=== PATIENT | female | born 1985 | race Caucasian/White ===

== ENCOUNTER 2017-01-27 23:55 | Observation (INO) | payer BC ==
[2017-01-28] MEDS ORDERED: NS 0.9% 1000 ML* 1,000 ML IV ONE (02:04)
[2017-01-28] MEDS ORDERED: Morphine INJ* 4 MG/ML 1 ML CARPUJECT IV ONE (02:04)
[2017-01-28] MEDS ORDERED: Ondansetron INJ* 2 MG/ML VIAL IV ONE (02:04)
--- NOTE | 2017-01-28 02:21 | ED ---
Abdominal Pain/Female - HPI Summary HPI Summary: Pt here w/ ab pain. Started this morning around her navel - progressed throughout the day to her RLQ and intensity increased. [place] a surge of pain followed by some relief not too long ago. Has had nausea but no vomiting. Had a bout of diarrhea earlier tonight as well - denies hematochezia, mucous in stool. Feeling feverish and chilled. Was eating and drinking earlier today - no immediate pain but felt pain as food passed through intestines. No h/o ab surgeries. H/o ovarian cyst and ovulation pain - this does not feel the same. LMP 2 weeks ago - regular cycles for her. () - no complications as a result. Currently sexually active w/ partner - no dysparuenia, no post coital bleeding, no vaginal irritation/pain/discharge. Denies dysuria, flank pain, urgency or frequency. 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 - Pain Intensity: 6 Allergies/Adverse Reactions: Allergies Allergy/AdvReac Type Severity Reaction Status Date / Time Shellfish Allergy Allergy Nausea Verified 01/28/17 00:19 PMH/Surg Hx/FS Hx/Imm Hx Previously Healthy: Yes Endocrine/Hematology History: Reports: Hx Thyroid Disease - thryoidectomy - takes armour synthroid daily Denies: Hx Anticoagulant Therapy, Hx Blood Disorders, Autoimmune Disease - Immunization History Immunizations Up to Date: Yes Infectious Disease History: No Infectious Disease History: Denies: Traveled Outside the [place] in Last 30 Days - Family History Known Family History: Positive: None - Social History Occupation: Employed Full-time Lives: With Family Alcohol Use: Occasionally Hx Substance Use: No Substance Use Type: Reports: None Hx Tobacco Use: No Smoking Status (MU): Never Smoked Tobacco Review of Systems Positive: Fever, Chills - see HPI Eyes: Negative ENT: Negative Cardiovascular: Negative Respiratory: Negative Gastrointestinal: Other - see HPI Genitourinary: Negative Musculoskeletal: Negative Skin: Negative Neurological: Negative Psychological: Normal All Other Systems Reviewed And Are Negative: Yes Physical Exam Triage Information Reviewed: Yes Vital Signs On Initial Exam: Initial Vitals Temp Pulse Resp BP Pulse Ox 97.9 F 72 16 123/82 100 01/28/17 00:17 01/28/17 00:17 01/28/17 00:17 01/28/17 00:17 01/28/17 00:17 Vital Signs Reviewed: Yes Appearance: Positive: Well-Nourished, Ill-Appearing - appears pale but also mildy jaundiced Skin: Positive: Warm, Dry Head/Face: Positive: Normal Head/Face Inspection Eyes: Positive: Normal, EOMI, ROXANNA, Conjunctiva Clear - anicteric sclera ENT: Positive: Normal ENT inspection, Hearing grossly normal, Pharynx normal. Negative: Nasal congestion, Nasal drainage Neck: Positive: Supple, Nontender Respiratory/Lung Sounds: Positive: Clear to Auscultation, Breath Sounds Present. Negative: Rales, Rhonchi, Wheezes Cardiovascular: Positive: Normal, RRR, S1, S2 Abdomen Description: Positive: No Organomegaly, Soft, McBurney's Point Tenderness - mild rebouding; + psoas; + obturator. Negative: CVA Tenderness (R ), CVA Tenderness (L) Bowel Sounds: Positive: Present Pelvic Exam: Positive: other - deferred for now Musculoskeletal: Positive: Normal, Strength/ROM Intact Neurological: Positive: Normal, Sensory/Motor Intact, Alert, Oriented to Person Place, Time, CN Intact II-III Psychiatric: Positive: Normal Diagnostics - Vital Signs Vital Signs Temp Pulse Resp BP Pulse Ox 01/28/17 00:20 97.9 F 72 16 123/82 100 01/28/17 00:17 97.9 F 72 16 123/82 100 - Laboratory Result Diagrams: 01/28/17 02:10 01/28/17 02:10 Lab Statement: Any lab studies that have been ordered have been reviewed, and results considered in the medical decision making process. Abdominal Pain Fem Course/Dx - Course Course Of Treatment: Clinical presentation of appendicitis - will confirm w/ CT as diff includes ovarian pathology, intestinal pathology. UPDATE: CT confirms clinical suspicion. Gen surg called - [place] to admit. - Diagnoses Provider Diagnoses: Appendicitis Discharge - Discharge Plan Condition: Stable Disposition: ADMITTED TO [facility]
[2017-01-28 02:36] LABS: Hematocrit 37 % (35-47); Hemoglobin 12.2 g/dl (12.0-16.0); Mean Corpuscular HGB Conc 33 g/dl (31-36); Mean Corpuscular Hemoglobin 30 pg (27-31); Mean Corpuscular Volume 91 fL (80-97); Mean Platelet Volume 10 um3 (7.4-10.4); Red Blood Count 4.05 10^6/ul (4.0-5.4); Red Cell Distribution Width 14 % (10.5-15); White Blood Count 13.5 10^3/ul (3.5-10.8)
[2017-01-28 02:47] LABS: ALT 13 U/L (7-52); AST 16 U/L (13-39); Albumin 4.9 g/dL (3.2-5.2); Alkaline Phosphatase 61 U/L (34-104); Anion Gap 8 mmol/L (2-11); BUN/Creatinine Ratio 19.4 (8-20); Blood Urea Nitrogen 14 mg/dL (6-24); C Reactive Protein 16.03 mg/L (< 5.00); CO2 Carbon Dioxide 26 mmol/L (22-32); Calcium 9.6 mg/dL (8.6-10.3); Chloride 100 mmol/L (101-111); EGFR Non-African American 93.3 (>60); Globulin 2.5 g/dL (2-4); Glucose 153 mg/dL (70-100); Lipase 27 U/L (11.0-82.0); Potassium 3.7 mmol/L (3.5-5.0); Sodium 134 mmol/L (133-145); Total Protein 7.4 g/dL (6.4-8.9)
[2017-01-28] MEDS ORDERED: Iohexol 300* (CONTRAST) 10 ML SDV IV ONE (03:10)
[2017-01-28] MEDS ORDERED: Acetaminophen TAB* 325 MG PO PRN (05:25)
[2017-01-28] MEDS ORDERED: HYDROmorphone INJ* 1 MG/ML CARPUJECT SYRINGE IV SLOW PU PRN (05:25)
[2017-01-28] MEDS ORDERED: Ondansetron INJ* 2 MG/ML VIAL IV PRN (05:25)
[2017-01-28] MEDS ORDERED: NS 0.9% 1000 ML* 1,000 ML IV SCH (05:30)
--- NOTE | 2017-01-28 08:32 | HP ---
HISTORY AND PHYSICAL: DATE OF ADMISSION: 01/28/17 CHIEF COMPLAINT: Right lower quadrant abdominal pain. HISTORY OF PRESENT ILLNESS: Ms. Denae Ross is a 31-year-old woman who was in her usual good health until yesterday morning when she developed some generalized abdominal discomfort. She works as a guidance counselor at [employer] and it was felt that she was developing a GI illness. She had some mild nausea, but no vomiting. She had one episode of diarrhea and some anorexia. Over the course of the day, the pain became more and more severe until last evening just prior to bedtime pain in the right lower quadrant was bad enough that she felt that she needed to present to the emergency room. When initially seen, she was afebrile, with stable vital signs. She was noted to have tenderness in the right side of her abdomen. She had a white blood cell count of 13,500. test was negative. She had a C-reactive protein of 16. She underwent a CT scan of the abdomen and pelvis. I did review these images. This was read as acute appendicitis. It does appear that there was an appendicolith at the base of the appendix with a dilated appendiceal lumen with air within the lumen without evidence of significant periappendiceal inflammation. There appears to be no evidence of extraluminal air, perforation, or abscess. Surgical consultation was obtained and she has been admitted to the surgical service. PAST MEDICAL HISTORY: 1. Hypothyroidism secondary to thyroidectomy. 2. Asthma. PAST SURGICAL HISTORY: Thyroidectomy. MEDICATIONS: Includes: 1. Armor thyroid 90 mcg daily. 2. Flonase two sprays both nares daily. 3. Zyrtec 10 mg daily. 4. Pulmicort inhaler 90 mcg per ACT one puff daily. 5. Albuterol inhaler p.r.n. which she uses very rarely. ALLERGIES: SHELLFISH, which causes some nausea. SOCIAL HISTORY: She is . 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 She drinks alcohol on a social basis. Did not use tobacco. She remains active physically. REVIEW OF SYSTEMS: Cerebrovascular: No dizziness or visual disturbances. Cardiovascular: No chest pain or shortness of breath. Pulmonary: No wheezing or hemoptysis. GI: As per above. : She does have a known history of ovarian cysts. PHYSICAL EXAMINATION GENERAL: She is a slender female, very pleasant, sitting upright, appears to be in no apparent distress. VITAL SIGNS: Temperature 98.5, pulse 68, blood pressure 115/61. HEENT: Sclerae is anicteric. Oral mucosa is slightly dry. LUNGS: Clear to auscultation with normal respiratory effort. HEART: Regular rate and rhythm without murmurs, rubs, or gallops. ABDOMEN: Soft, it is slightly distended. She had normoactive bowel sounds throughout. There is no prior surgical incision. There is no hernia. She has tenderness with some voluntary guarding and localized peritoneal irritation in the right lower quadrant. PSYCHIATRIC: She is awake, alert, and oriented x3. She has normal judgment and insight. IMPRESSION: 1. Acute appendicitis. 2. Asthma. PLAN/RECOMMENDATIONS: 1. The patient has been admitted to the surgical service and admitted to the short-stay unit. 2. She has been kept n.p.o. and started on IV fluids. 3. Intravenous Zosyn will be started. 4. Plan will be for a laparoscopic appendectomy today. I discussed the procedure with her and her and the risks, but not limited to bleeding, infection, intraabdominal abscess formation, injury to peritoneal and retroperitoneal structures, possibility of an open procedure, risk of anesthesia, and deep vein thrombosis were discussed. We discussed hospital stays and recovery times depending on findings at the surgery and postoperative care. We will schedule the surgery for today and also informed her that it will be one of the several [facility] who are available to expedite surgery and she is comfortable with this. [id number]/[facility] #: [id number] MTDD
--- NOTE | 2017-01-28 08:38 | RAD ---
CLINICAL HISTORY: Right lower quadrant pain COMPARISON: None TECHNIQUE: Contrast enhanced CT examination of the abdomen and pelvis from the lung bases through the initial tuberosities. The patient received 81 mL Omnipaque 300 intravenously prior to imaging.The patient received oral contrast as well prior to imaging. FINDINGS: VISUALIZED LUNG BASES: The visualized lung bases are grossly clear. There is no pleural effusion. ABDOMEN AND PELVIS: The liver, spleen, pancreas and adrenal glands are grossly normal in appearance. The gallbladder is normal. The kidneys are normal in appearance without focal mass, calcification or signs of hydronephrosis. There are contrast has progressed as far as the distal third of the small bowel. The distal ileum exhibits mild dilatation but not to a pathologic degree. This is in the vicinity of the patient's acute appendicitis. The appendix is dilated up to 1.7 cm in diameter with pericholecystic stranding. There is a 1 cm appendicolith at the junction of the appendix and cecum. More distally much of the colon is decompressed without focal abnormality. Mesenteric lymph nodes of the right lower quadrant are enlarged up to 11 mm in short axis diameter. The pelvic viscera is normal in appearance. There is free fluid in the cul-de-sac. The abdominal aorta and iliac arteries are normal in course and diameter. Degenerative changes include multilevel loss of intervertebral disc height involving the lower thoracic and lumbar spine.There are no sinister bone lesions. IMPRESSION: CT findings are consistent with acute appendicitis.
[2017-01-28] MEDS: Budesonide Flexhaler 90 (NF) 90 MCG/ACT MDI INH SCH ×2 (08:58→08:59)
[2017-01-28] MEDS ORDERED: Levalbuterol 1.25MG/0.5ML NEB ONE (10:45)
[2017-01-28] MEDS ORDERED: Sodium Citrate/Citric Acid* 15 ML UDC ONE (10:45)
[2017-01-28] MEDS ORDERED: Bupivacaine 0.5% SDV PF* 30 ML VIAL ONE (11:45)
[2017-01-28] MEDS ORDERED: Cisatracurium* 2 MG/ML MDV 5 ML ONE (11:50)
[2017-01-28] MEDS ORDERED: Lidocaine 2% PF * 5 ML VIAL ONE (11:50)
[2017-01-28] MEDS ORDERED: Propofol* 10 MG/ML 20 ML BTL IV PUSH ONE (11:50)
[2017-01-28] MEDS ORDERED: ceFOXitin 2 GM IVPREMIX* 2 GM/50 ML BAG ONE ×2 (12:03→12:30)
[2017-01-28] MEDS ORDERED: fentaNYL* 50 MCG/ML 2 ML VIAL (100 MCG VIAL) ONE (12:10)
[2017-01-28] MEDS ORDERED: fentaNYL* 50 MCG/ML 2 ML VIAL (100 MCG VIAL) IV PRN (12:52)
[2017-01-28] MEDS ORDERED: Glycopyrrolate IV* 0.2 MG/ML 1 ML VIAL ONE (13:08)
[2017-01-28] MEDS ORDERED: Neostigmine Methylsulfate* 2 MG/2 ML SYRINGE ONE (13:08)
--- NOTE | 2017-01-28 13:28 | SURGPN ---
Brief Operative Note - Surgery Procedures: Pre-op dx: Acute appendicitis Post-op dx: same Procedure: Laparoscopic Appendectomy Anesthesia: GEN Rutihe Bravo Surgeon: Dr. Lerma Assist: Lupillo VÁZQUEZ EBL: minimal <20mL Specimen: Appendix Fluids: LR 1500 mL Drains: none Findings: none
[2017-01-28] MEDS ORDERED: oxyCODONE/Acetamin 5/325 MG* TAB PO PRN (13:31)
[2017-01-28 15:56] VITALS: BP 119/69
[2017-01-28] MEDS ORDERED: HYDROcodone/ACETAMIN 5-325 MG* 1 TAB PO PRN (16:09)
[2017-01-28] MEDS ORDERED: HYDROcodone/ACETAMIN 5-325 MG* 1 TAB ONE (16:11)
--- NOTE | 2017-02-03 19:30 | OP ---
CC: [facility] OPERATIVE NOTE: DATE OF OPERATION: 01/28/17 DATE OF : 81 SURGEON: Júnior Lerma MD. DIRECTOR REVENUE: None. ANESTHESIOLOGIST: Vincent Bravo DO ANESTHESIA: General endotracheal. PRE-OP DIAGNOSIS: Acute appendicitis. POST-OP DIAGNOSIS: Acute appendicitis. OPERATIVE PROCEDURE: Laparoscopic appendectomy. ESTIMATED BLOOD LOSS: Minimal. IV FLUIDS: Crystalloids. SPECIMENS: Appendix. DRAINS: None. COMPLICATIONS: None. COUNTS: The instrument, needle, and sponge counts were correct. DESCRIPTION OF PROCEDURE: The patient was brought to the operating room and placed on the table sup ine. Sequential compression devices were placed in both lower extremities and general anesthesia wa s administered. The abdomen was prepped and draped in the usual sterile fashion. She received appr opriate antibiotics and a time-out was performed. Local anesthetic was infiltrated into the skin and soft tissue prior to making each incision. Entry into the abdomen was through a transumbilical incision using an open technique. After accessing th e peritoneal cavity, carbon dioxide was insufflated to a pressure of 15 mmHg. Under direct visualization, 5-mm trocars were placed in the suprapubic midline and in the left lower quadrant. The appendix was identified, it appeared to be acutely inflamed with no evidence of gang carlotta or perforation. The appendix was elevated and the base was identified. A window was created i n the appendix mesentery at the base and the appendix was divided from the cecum with the EndoGIA st apler with a perez cartridge. The appendix mesentery was divided with the EndoGIA stapler with a romero cartridge. The appendix was placed through an endoscopic retrieval bag and retrieved through the u mbilical site. Hemostasis was assured. The ports were removed under direct visualization and carbo n dioxide was released. The umbilical wound was closed with 0 Polysorb in a [id number]-[id number] fashion to approximate the fascia. The skin incisions were closed with 4-0 Monocryl in subcuticular fashio n and Steri-Strips were applied. The patient tolerated the procedure well, was extubated and transf erred to recovery room in stable condition. [id number]/[facility] #: [id number]
--- NOTE | 2017-02-03 21:48 | DS ---
DISCHARGE SUMMARY: DATE OF ADMISSION: 01/28/17 DATE OF DISCHARGE: 01/28/17 DISCHARGE DIAGNOSIS: Acute appendicitis. PROCEDURE: Laparoscopic appendectomy on 01/28/17. HOSPITAL COURSE: The patient was admitted through the emergency room for acute appendicitis and und erwent an uneventful laparoscopic appendectomy. Please refer to the operative report for full detai ls. Postoperatively, the patient was discharged from the recovery room with instructions to follow up with [facility]. DISCHARGE MEDICATIONS: Her medications at discharge included prescription for Percocet. [id number]/[facility] #: [id number]
== END 2017-01-28 16:45 | disposition home or self-care (01) ==
LOC: ED 23:55 → SSU 01-28 05:23
PROVIDERS: ADMIT Surgery; ATTEND Surgery
DX: K35.80 Unspecified acute appendicitis (principal); E03.9 Hypothyroidism, unspecified; E89.0 Postprocedural hypothyroidism; J45.909 Unspecified asthma, uncomplicated; Z91.013 Allergy to seafood
CPT/HCPCS: 36415; 74177; 80053; 83605; 83690; 83735; 84702; 85025; 85610; 85730; 86140; 87040; 88304; 94760; 96374; 96375; 99284; A9270-GY; C1776; G0378; J0694; J2270; J2405; J2543; J2704; J3010; Q9967

== ENCOUNTER 2018-01-03 13:42 | Inpatient (IN) | payer BC ==
--- NOTE | 2018-01-03 15:20 | HP ---
General Information - Reason for Visit Labor - General Information Maternal Age: 32 Grav: 2 Para: 0 SAB: 0 IEA: 1 Estimated Due Date: 01/06/18 Determined By: LMP - confirmed by 12 week sono Gestational Age in Weeks/Days: 39-47 Maternal Blood Type and Rh: O Positive - Results this Serology/RPR Result: Non-Reactive Rubella Result: Immune HBsAg Result: Negative HIV Result: Negative GBS Culture Result: Negative Past Medical History Delivery History: See Records Delivery History Comment: IEA 2001 Primip Pertinent Past Medical History: See Records Past Medical History Comment: Thyroid Cancer 2006. S/P thyroidectomy on replacement Asthma uses daily Pulmicort and rescue inhaler PRN H/O Migraine with aura Back pain due to injury as a teenager Pertinent Past Surgical History: See Records Past Surgical History Comment: 1999 and 2008 Sinus surgery 2007 Thyroidectomy 2017 Appendectomy Pertinent Family History: See Records Family History Comment: Father: HTN Mother: Fibromyalgia, hypothyroidism PGF: . DM Type 2 MGM: . Alzheimer's MGF: . Alcoholism - Antepartal Records Antepartal Records: Reviewed, Complicated by: - GDM-A1 Review of Systems Constitutional: Uncomfortable - with UCs CV Complaint: No Respiratory: Shortness of Breath: No Gastrointestinal: Nausea, Vomiting - x 1 Genitourinary: No Dysuria, No Bleeding, No Leaking Fluid Musculoskeletal: Contractions Neurological: No Headache, No Visual Changes Movement: Normal Exam Allergies/Adverse Reactions: Allergies MS Shellfish Allergy [Shellfish Allergy] Allergy (Verified 01/28/17 00:19) Nausea BP126/75 HR 79 RR 20 T 97.9 SpO2 100% on RA - Measurements Height: 5 ft 5 in Weight: 176 lb Body Mass Index (BMI): 29.2 Pre- Weight: 135 lb - Exam Breast: Breast Exam Deferred CVA: No CVA Tenderness Extremities: No Edema Heart: Normal Rhythm/Heart Sounds HEENT: No Significant Findings Lungs: Clear Bilaterally Rectal: Rectal Exam Deferred Reflexes: DTR 2+ Thyroid: No Thyromegaly - Note: Thyroid is surgically absent - Abdominal Exam Abdomen Exam: Non-Tender, Fundal Height Consistent with Dates - Ultrasound/Biophysical Profile Ultrasound Status: Not Done Targeted Exam Findings See L&D Outpatient Visit Provider Note for Findings: N/A Estimated Weight: 7-7.5lbs by Netta Cervical Exam: 4cm Effacement: 80% Presenting Part: Vertex - Exam per RN Membrane Status: Intact EFM Findings - External Monitor Findings Baseline Heart Rate: 125 External Monitor Findings: Accelerations Present, No Pattern of Variable or Late Decelerations, Variability Moderate, Baseline Stable External Monitor Findings Comment: No evidence of metabolic acidemia Contractions: Regular, Moderate, 45-90 Seconds Contraction Frequency: q 2-4 min Assessment/Plan - Assessment IUP at 39-4/7 weeks in labor - Obstetrical Risk Factors Obstetrical Risk Factors: Gestational Diabetes - A1 - Plan Plan: Observe Plan Comment: Admit. Pt desires expectant management for now. Anticipate - Date/Time of Admission Date of Admission: 01/03/18 Time of Admission: 14:40
--- NOTE | 2018-01-03 17:33 | PN ---
Progress Note - Progress Note Date of Service: 01/03/18 Note: S: Pt coping well. Just out of the tub. FOB and pt's mother providing bedside support. O: BP 132/83 HR 84 T 97.9 FHT: 130bpm by doptones. No decels with UCs UCs q 3-5 min, moderate to firm VE: 6cm/100%/vtx -1 A: IUP at 39-4/7 in active labor No evidence of metabolic acidemia GDM - A1 P: Bedside support. Continue expectant management.
--- NOTE | 2018-01-03 19:33 | PN ---
Progress Note - Progress Note Date of Service: 01/03/18 Note: S: Pt breathing through UCs and then resting with eyes closed in between. FOB and pt's mother continue to provide continuous bedside support. Feeling shivery and shaky. Increased pressure when standing. Less intense when seated. Requests VE. O: BP 134/77 HR 81 FHT: 130bpm. Moderate variability. +Accels. No decels. UCs q 2-4 min moderate-firm VE: 8cm/100%/vtx 0 station A: IUP at 39-4/7 in active labor No evidence of metabolic acidemia GDM A1 P: Bedside support. Encouraged by cervical change. Reassured that feeling exhausted is normal. Expectant management
--- NOTE | 2018-01-03 21:47 | PN ---
Progress Note - Progress Note Date of Service: 01/03/18 Note: S: Pt requesting VE. Notes more tailbone pressure but no urge to push yet. O: BP 134/77 HR 81 T 98.8 FHT 130bpm. Moderate variability. +Accels. No decels UCs q 2-4 moderate-firm VE: 9cm/100%/vtx 0 to +1 +Bloody show. Bag of water intact A: IUP at 39-4/7 in active labor No evidence of metabolic acidemia GDM A1 P: Reassurances given. FOB and mother at bedside. Expectant management.
[2018-01-03] MEDS ORDERED: Calcium Carbonate CHEW TAB* 500 MG (TUMS) ONE ×2 (23:34→23:44)
--- NOTE | 2018-01-04 02:24 | PROCNOTE ---
[facility] OB: Delivery Note - Delivery A Date of : 01/04/18 Time of : 01:36 Sig[place] Sex: Male Score 1 Minute: 9 Score 5 Minutes: 9 Gestational Age in Weeks and Days at Delivery: 39 Weeks and 5 Days Delivery Method: Spontaneous Vaginal Labor: Spontaneous Did Patient attempt ?: N/A, No Previous Amniotic Fluid: Clear Estimated Blood Loss: 300 Anesthesia/Analgesia: Nitrous-Labor Delivered By: Shauna Babin - Nursery Level of Nursery: Regular/Bedside - Perineum Perineal Injury: Periurethral Laceration, Vaginal Laceration Perineal Injury Comment: 2cm vaginal wall laceration, right labial Perineal Repair: By Delivering Practioner - Events Delivery Events of Note: Pitocin Only After Delivery - Additional Delivery Notes Additional Delivery Notes: Pt admitted in labor with expected progression to complete. Amniotomy to clear fluid with onset of pushing. Pushed x 59 min. liveborn male. Slow, controlled delivery of head. DERRICK to OA. Shoulders followed easily with maternal push. Loose nuchal cord x 1. Looped off after delivery. vigorous with spontaneous cry. HR>110bpm. Delivered to maternal abdomen. Cord clamped x 2 and cut by FOB when pulsations ceased. Spontaneous delivery intact placenta. Membranes complete. 10units IM pitocin given after delivery of placenta. Fundus firm to massage and remained firm. Minimal bleeding noted. Repair as above. EBL 300mL. At time of note mother and in stable condition. Planning to breast feed.
[2018-01-04] MEDS ORDERED: Witch Hazel PAD* JAR TOPICAL PRN (02:25)
[2018-01-04] MEDS ORDERED: Glycerin ADULT SUPP PR PRN (02:25)
[2018-01-04] MEDS ORDERED: OXYTOCIN* 10 UNITS/ML 1 ML VIAL IM ONE (02:25)
[2018-01-04] MEDS ORDERED: Dibucaine 1% 28.35 GM TUBE PR PRN (02:25)
[2018-01-04] MEDS ORDERED: Acetaminophen TAB* 325 MG PO PRN (02:25)
[2018-01-04] MEDS ORDERED: Calcium Carbonate CHEW TAB* 500 MG (TUMS) PO ONE (06:00)
[2018-01-04] MEDS: Ibuprofen TAB* 600 MG PO PRN ×3 (06:16→18:04)
[2018-01-04] MEDS ORDERED: Simethicone TAB* 80 MG TAB.CHEW PO SCH (08:30)
[2018-01-04] MEDS ORDERED: Thyroid TAB* 30 MG PO SCH (09:00)
[2018-01-04] MEDS ORDERED: THYROID PORK 90 MG PO SCH (09:00)
[2018-01-04] MEDS ORDERED: Thyroid TAB* 15 MG PO SCH (09:00)
[2018-01-04] MEDS ORDERED: THYROID 30 MG PO SCH (09:00)
[2018-01-04] MEDS: Docusate CAP* 100 MG PO SCH ×3 (09:06→21:15)
[2018-01-04] MEDS: Mometasone 220 MCG MDI INH SCH (09:06)
[2018-01-05 07:14] LABS: Hematocrit 30 % (35-47); Hemoglobin 10.2 g/dl (12.0-16.0); Mean Corpuscular HGB Conc 34 g/dl (31-36); Mean Corpuscular Hemoglobin 32 pg (27-31); Mean Corpuscular Volume 94 fL (80-97); Red Blood Count 3.21 10^6/ul (4.00-5.40); Red Cell Distribution Width 18 % (10.5-15); White Blood Count 9.6 10^3/ul (3.5-10.8)
[2018-01-05 08:07] LABS: ABS Basophils 0 10^3/ul (0-0.2); ABS Eosinophils 0.1 10^3/ul (0-0.6); ABS Lymphocytes 1.5 10^3/ul (1.0-4.8); ABS Monocytes 0.8 10^3/ul (0-0.8); ABS Neutrophils 7.2 10^3/ul (1.5-7.7); ABS Nucleated RBC 0 10^3/ul; Eosinophil % 0.6 % (0-6); Lymphocyte % 15.6 % (25-47); Mean Platelet Volume 10.8 um3 (7.4-10.4); Nucleated Red Blood Cells % 0.1; Platelet Count 67 10^3/ul (150-450)
[2018-01-05] MEDS: Docusate CAP* 100 MG PO SCH ×2 (08:49→17:16)
[2018-01-05] MEDS: Mometasone 220 MCG MDI INH SCH (08:50)
[2018-01-05] MEDS: Ibuprofen TAB* 600 MG PO PRN ×3 (08:50→23:21)
[2018-01-05] MEDS: Thyroid TAB* 30 MG PO SCH (08:52)
[2018-01-05] MEDS ORDERED: Ferrous Gluconate TAB* 324 MG TAB PO SCH (09:00)
--- NOTE | 2018-01-05 09:22 | PTEDU ---
Patient Name: LATOYA JOHNSON LATOYA JOHNSON selected video: BBOB: Nurturing Your Gorgeous &Growing Baby by to view on 01/05/2018 at 9:21:25 AM [id number]
--- NOTE | 2018-01-05 09:34 | PTEDU ---
Patient Name: LATOYA JOHNSON LATOYA JOHNSON selected video: BBOB: Nurturing Your Gorgeous &Growing Baby by to view on 01/05/2018 at 9:34:09 [id number]
[2018-01-05 20:05] VITALS: BP 127/80
[2018-01-06] MEDS: Thyroid TAB* 30 MG PO SCH (08:47)
[2018-01-06] MEDS: Docusate CAP* 100 MG PO SCH (08:48)
[2018-01-06] MEDS: Mometasone 220 MCG MDI INH SCH (08:59)
== END 2018-01-06 12:11 | disposition home or self-care (01) | DRG 560 ==
LOC: MCHOBOUT 13:42 → MCHOB 14:36
PROVIDERS: ADMIT Midwife; ATTEND Midwife
PROC: 10E0XZZ Delivery of Products of Conception, External Approach (ICD-10-PCS; principal; 2018-01-04)
PROC: 0KQM0ZZ Repair Perineum Muscle, Open Approach (ICD-10-PCS; 2018-01-04)
PROC: 10907ZC Drainage of Amniotic Fluid, Therapeutic from Products of Conception, Via Natural or Artificial Opening (ICD-10-PCS; 2018-01-04)
DX: O24.429 Gestational diabetes mellitus in childbirth, unspecified control (principal); O71.4 Obstetric high vaginal laceration alone; O99.284 Endocrine, nutritional and metabolic diseases complicating childbirth; E03.9 Hypothyroidism, unspecified; O69.81X0 Labor and delivery complicated by cord around neck, without compression, not applicable or unspecified; Z3A.39 39 weeks gestation of pregnancy; Z37.0 Single live birth
CPT/HCPCS: 36415; 85025; 85060; A9270-GY; J2590

== ENCOUNTER 2020-12-15 17:53 | Inpatient (IN) ==
[2020-12-15] MEDS ORDERED: Buffered Lidocaine 1% SYRIN 1 ml INTRADERM ONE (18:58)
[2020-12-15] MEDS ORDERED: Lactated Ringers 1000 ml BAG 1,000 ML IV ONE (18:58)
[2020-12-15] MEDS ORDERED: Penicillin G Potassium IV 5,000,000 UNITS in NS 0.9% 100 ml BAG 100 ML IVPB ONE (18:58)
[2020-12-15] MEDS ORDERED: Penicillin G Potassium IV 3,000,000 UNITS in NS 0.9% 100 ml BAG 100 ML IVPB SCH (19:00)
[2020-12-15] MEDS ORDERED: Lactated Ringers 1000 ml BAG 1,000 ML IV SCH ×2 (19:00→20:00)
[2020-12-15 20:19] LABS: Urine Benzodiazepine Screen None Detected (None Detect); Urine Cannabinoids Screen None Detected (None Detect); Urine Opiates Screen None Detected (None Detect)
[2020-12-15 20:43] LABS: ABS Eosinophils 0.1 10^3/ul (0-0.6); ABS Lymphocytes 1.4 10^3/ul (1.0-4.8); ABS Monocytes 0.6 10^3/ul (0-0.8); ABS Neutrophils 4.5 10^3/ul (1.5-7.7); Hematocrit 33 % (35-47); Hemoglobin 11.2 g/dL (12.0-16.0); Lymphocyte % 21.5 %; Mean Corpuscular HGB Conc 34 g/dL (31-36); Mean Corpuscular Hemoglobin 32 pg (27-31); Mean Corpuscular Volume 93 fL (80-97); Mean Platelet Volume 12.3 fL (7.4-10.4); Platelet Count 95 10^3/uL (150-450); Red Cell Distribution Width 15 % (10-15); White Blood Count 6.6 10^3/uL (3.5-10.8)
[2020-12-16] MEDS: Penicillin G Potassium IV 3,000,000 UNITS in NS 0.9% 100 ml BAG 100 ML IVPB SCH ×2 (15:31→20:49)
[2020-12-16] MEDS ORDERED: Oxytocin in LR 20 UNITS/1,000 ML BAG IVPB ONE (19:06)
[2020-12-16] MEDS: Oxytocin in LR 20 UNITS/1,000 ML BAG IVPB SCH (20:01)
[2020-12-16] MEDS: Dibucaine 1% OINT 28.35 GM TUBE PR PRN (20:48)
[2020-12-16] MEDS: Witch Hazel PAD JAR TOPICAL PRN (20:48)
[2020-12-16] MEDS ORDERED: Lactated Ringers 1000 ml BAG 1,000 ML IV SCH (21:00)
[2020-12-16] MEDS ORDERED: Methylergonovine 0.2 mg AMPULE 1 ml AMP IM ONE (21:02)
[2020-12-16] MEDS ORDERED: Lidocaine 1% VIAL 10 MG/ML VIAL ONE (22:45)
[2020-12-17] MEDS: Oxytocin in LR 20 UNITS/1,000 ML BAG IVPB SCH ×3 (00:23→08:20)
[2020-12-17 01:47] LABS: ABS Lymphocytes 0.9 10^3/ul (1.0-4.8); ABS Monocytes 0.8 10^3/ul (0-0.8); ABS Neutrophils 13.4 10^3/ul (1.5-7.7); Hematocrit 30 % (35-47); Hemoglobin 9.8 g/dL (12.0-16.0); Lymphocyte % 5.7 %; Mean Corpuscular HGB Conc 33 g/dL (31-36); Mean Corpuscular Hemoglobin 31 pg (27-31); Mean Corpuscular Volume 95 fL (80-97); Mean Platelet Volume 11.6 fL (7.4-10.4); Platelet Count 94 10^3/uL (150-450); Red Blood Count 3.13 10^6 /uL (3.70-4.87); Red Cell Distribution Width 15 % (10-15); White Blood Count 15.1 10^3/uL (3.5-10.8)
[2020-12-17] MEDS ORDERED: fentaNYL 100 mcg/2 ml 50 MCG/ML VIAL IV SLOW PU ONE (02:54)
[2020-12-17] MEDS ORDERED: ceFAZolin 2 GM in NS PREMIX 2 GM/100 ML BAG IVPB ONE (03:25)
[2020-12-17 06:23] LABS: ABS Lymphocytes 1.2 10^3/ul (1.0-4.8); ABS Monocytes 0.9 10^3/ul (0-0.8); ABS Neutrophils 8.8 10^3/ul (1.5-7.7); Eosinophil % 0.2 %; Hematocrit 23 % (35-47); Hemoglobin 7.9 g/dL (12.0-16.0); Lymphocyte % 11.2 %; Mean Corpuscular HGB Conc 35 g/dL (31-36); Mean Corpuscular Hemoglobin 32 pg (27-31); Mean Corpuscular Volume 93 fL (80-97); Mean Platelet Volume 12.1 fL (7.4-10.4); Platelet Count 99 10^3/uL (150-450); Red Blood Count 2.47 10^6 /uL (3.70-4.87); Red Cell Distribution Width 15 % (10-15)
[2020-12-17] MEDS: Penicillin G Potassium IV 3,000,000 UNITS in NS 0.9% 100 ml BAG 100 ML IVPB SCH ×2 (08:55→08:56)
[2020-12-18 07:25] LABS: ABS Eosinophils 0.1 10^3/ul (0-0.6); ABS Lymphocytes 2.3 10^3/ul (1.0-4.8); ABS Monocytes 0.6 10^3/ul (0-0.8); ABS Neutrophils 6.3 10^3/ul (1.5-7.7); Eosinophil % 0.8 %; Hematocrit 26 % (35-47); Hemoglobin 8.8 g/dL (12.0-16.0); Lymphocyte % 24.6 %; Mean Corpuscular HGB Conc 35 g/dL (31-36); Mean Corpuscular Hemoglobin 31 pg (27-31); Mean Corpuscular Volume 91 fL (80-97); Mean Platelet Volume 10.8 fL (7.4-10.4); Platelet Count 78 10^3/uL (150-450); Red Blood Count 2.81 10^6 /uL (3.70-4.87); Red Cell Distribution Width 16 % (10-15); White Blood Count 9.3 10^3/uL (3.5-10.8)
[2020-12-18 08:32] VITALS: BP 119/58
[2020-12-18] MEDS: Witch Hazel PAD JAR TOPICAL PRN (11:32)
[2020-12-18] MEDS: Dibucaine 1% OINT 28.35 GM TUBE PR PRN (11:32)
== END 2020-12-18 13:52 | disposition home or self-care (01) | DRG 560 ==
LOC: MCHOBOUT 17:53 → MCHOB 18:28
PROVIDERS: ADMIT Midwife; ATTEND Midwife